=== PATIENT | female | born 1950 | race Caucasian/White ===

== ENCOUNTER → 2016-07-12 | Outpatient (CLI) | payer MEDICARE ==
--- NOTE | 2016-07-12 10:15 | US ---
EXAMINATION TYPE: US thyroid st tissue head/neck DATE OF EXAM: 07/12/2016 9:43 AM COMPARISON: NONE CLINICAL HISTORY: Dysphagia R13.19. left lower neck feels like something gets stuck or pressure on it GLAND SIZE: Right Lobe: 4.2 x 1.4 x 1.7 cm Overall Parenchyma: heterogenous Left Lobe: 4.6 x 1.4 x 1.4 cm Overall Parenchyma: heterogeneous Isthmus Thickness: 0.2 cm NODULES RIGHT: # of nodules measured on right: 1 1. 1.5 X 1.2 x 1.4 cm echogenic solid nodule at the mid pole with well-defined margins; . This nod ule is wider than tall and shows intranodular vascularity. Prior size: no prior LEFT: # of nodules measured on left: 3 1. 0.3 X 0.3 x 0.5 cm isoechoic mixed nodule at the medial inferior/mid pole with well-defined neil ins; . This nodule is taller than wide and shows no intranodular vascularity. Prior size: no prior 2. 0.3 X 0.2 x 0.6 cm isoechoic mixed nodule at the lower/lateral pole with poorly defined margins; . This nodule is irregular shape and shows no intranodular vascularity. Prior size: no prior 3. 0.8 X 0.5 x 0.5 cm echogenic solid nodule at the lower pole with well-defined margins; . This no dule is wider than tall and shows no intranodular vascularity. Prior size: no prior ISTHMUS: # of nodules measured in the isthmus: 0 TECHNOLOGIST IMPRESSION: Bilateral neck scanned, no abnormal lymphadenopathy noted. Thyroid gland is within normal limits in size and somewhat heterogeneous in appearance. There are sma ll nodules marked in the left thyroid gland. The right thyroid there is round heterogeneous well-defi flex slightly hyperechoic but hypervascular nodule measuring 1.5 cm in size. IMPRESSION: There is 1.5 cm round slightly hyperechoic nodule right thyroid lobe noted. KATHY 2015 guidelines clas sify as low suspicion due to hyperechoic appearance and recommend FNA at greater than 1.5 cm so the l esion is borderline to follow or sample at this time.
== END | disposition home or self-care (01) ==
LOC: RADUSWWP 09:06
PROVIDERS: ATTEND Family Medicine
DX: E04.1 Nontoxic single thyroid nodule (principal)
CPT/HCPCS: 76536

== ENCOUNTER → 2017-05-27 | Outpatient (CLI) | payer MEDICARE ==
--- NOTE | 2017-05-27 11:24 | US ---
EXAMINATION TYPE: US thyroid st tissue head/neck DATE OF EXAM: 05/27/2017 COMPARISON: US CLINICAL HISTORY: E04.2Nontoxic multinodular goiter. F/U previous GLAND SIZE: Right Lobe: 3.8 x 1.4 x 1.8 cm Overall Parenchyma: heterogenous Left Lobe: 5.0 x 1.5 x 1.4 cm Overall Parenchyma: heterogeneous Isthmus Thickness: 0.3 cm NODULES RIGHT: # of nodules measured on right: 1 1. 1.5 X 1.2 x 1.5 cm echogenic solid nodule at the mid/lower pole with well-defined margins; This nodule is wider than tall and shows intranodular vascularity. Prior size: 1.5 x 1.2 x 1.4 cm LEFT: # of nodules measured on left: 3 1. 0.5 X 0.4 x 0.5 cm isoechoic mixed nodule at the medial pole with well-defined margins; This no dule is wider than tall and shows no intranodular vascularity. Prior size: 0.3 x 0.3 x 0.5 cm 2. 0.6 X 0.3 x 0.7 cm isoechoic mixed nodule at the mid pole with poorly defined margins; This nodu le is wider than tall and shows no intranodular vascularity. Prior size: 0.3 x 0.2 x 0.6 cm 3. 0.8 X 0.5 x 0.7 cm isoechoic solid nodule at the lower pole with well-defined margins; This nodu le is wider than tall and shows intranodular vascularity. Prior size: 0.8 x 0.5 x 0.5 cm ISTHMUS: # of nodules measured in the isthmus: 0 Bilateral neck scanned, no evidence of lymphadenopathy. Stable nodules bilaterally IMPRESSION: Stable thyroid nodularity.
== END | disposition home or self-care (01) ==
LOC: RADUSWWP 10:34
PROVIDERS: ATTEND Internal Medicine Endocrinology, Diabetes & Metabolism
DX: E04.1 Nontoxic single thyroid nodule (principal)
CPT/HCPCS: 76536

== ENCOUNTER → 2017-11-19 | Outpatient (CLI) | payer MEDICARE ==
--- NOTE | 2017-11-19 09:57 | US ---
EXAMINATION TYPE: US thyroid st tissue head/neck DATE OF EXAM: 11/19/2017 COMPARISON: Thyroid ultrasound May 27, 2017 CLINICAL HISTORY: E04.2 Nontoxic multinodular goiter. GLAND SIZE: Right Lobe: 4.1 x 1.8 x 1.5 cm Overall Parenchyma: heterogenous Left Lobe: 4.8 x 2.0 x 1.3 cm Overall Parenchyma: heterogeneous Isthmus Thickness: 0.2 cm NODULES RIGHT: # of nodules measured on right: 1. 1.4 X 1.5 x 1.4 cm isoechoic solid nodule at the mid pole with well-defined margins; . This nod ule is wider than tall and shows intranodular vascularity. Prior size: 1.5 x 1.2 x 1.5 cm 2. 0.8 X 0.4 x 0.8 cm hypoechoic solid nodule at the lower pole with well-defined margins; . This n odule is wider than tall and shows intranodular vascularity. Prior size: not previously measured LEFT: # of nodules measured on left: 1. 0.5 X 0.6 x 0.4 cm hypoechoic mixed nodule at the medial pole with well-defined margins; . This nodule is taller than wide and shows no intranodular vascularity. Prior size: 0.5 x 0.4 x 0.5 cm 2. 0.4 X 0.4 x 0.4 cm hypoechoic mixed nodule at the mid pole with poorly defined margins; . This n odule is wider than tall and shows no intranodular vascularity. Prior size: x x cm 3. 0.7 X 0.6 x 0.9 cm isoechoic solid nodule at the lower pole with well-defined margins; . This no dule is wider than tall and shows intranodular vascularity. Prior size: 0.8 x 0.5 x 0.7 cm ISTHMUS: # of nodules measured in the isthmus: 0 Bilateral neck scanned, no evidence of lymphadenopathy. There is redemonstration of slightly heterogeneous normal-sized thyroid with stable nodules identifie d bilaterally. No new nodules are evident. IMPRESSION: Overall stable findings.
== END | disposition home or self-care (01) ==
LOC: RADUSWWP 09:17
PROVIDERS: ATTEND Internal Medicine Endocrinology, Diabetes & Metabolism
DX: E04.2 Nontoxic multinodular goiter (principal)
CPT/HCPCS: 76536

== ENCOUNTER → 2018-04-17 | Outpatient (CLI) | payer MEDICARE ==
--- NOTE | 2018-04-17 14:03 | BD ---
EXAMINATION TYPE: Axial Bone Density DATE OF EXAM: 04/17/2018 COMPARISON: DEXA bone scan report April 03, 2007 CLINICAL HISTORY: Post menopausal female. Height: 64 Weight: 179.0 FRAX RISK QUESTIONS: Alcohol (3 or more units per day): no Family History (Parent hip fracture): no Glucocorticoids (More than 3mos): no (Ex: prednisone, prednisolone, methylprednisolone, dexamethasone, and hydrocortisone). History of Fracture in Adulthood: no Secondary Osteoporosis: 1. Type 1 Diabetes: no 2. Hyperthyroidism: no 3. Menopause before 45: no 4. Malnutrition: no 5. Chronic liver disease: no Rheumatoid Arthritis: yes Current Tobacco Use: no RISK FACTORS HISTORY OF: Surgery to Spine/Hip(right/left)/Wrist (right/left): lumbar spine surgery When: 2018 Family History of Osteoporosis: no Active: yes Diet low in dairy products/other sources of calcium: no Postmenopausal woman: after age 46 Lost more than 2 inches in height since high school: no Frequent falls: no MEDICATIONS: xeljanz, lipitor, lisinopril with hct Additional History: EXAM MEASUREMENTS: Bone mineral densitometry was performed using the [employer] [facility]. Bone mineral density about the R hip (g/cm2): 0.902 Bone mineral density about the L hip (g/cm2): 0.824 T Score values are as follows: -----R Neck: -1.0 -----L Neck: -1.5 -----R Total: 0.1 -----L Total: 0.3 Bone mineral density has: increased 3.8 % since study of: 04.03.2007 Bone mineral density about the L Wrist (g/cm2): 0.605 T Score values are as follows: -----Dist. R+U: -1.3 -----Prox. R+U: -0.4 -----Radius total: -1.1 Bone mineral density has: % since study of: 04.03.2007 IMPRESSION: Osteopenia (T Score between -2.5 and -1) femoral neck level in both hips. There is slightly increased risk of fracture and the patient may be considered for treatment. Re-Screen 2-5 years. NOTE: T-SCORE=SD OF THE YOUNG ADULT MEAN.
== END | disposition home or self-care (01) ==
LOC: RADBDWWP 12:08
PROVIDERS: ATTEND Internal Medicine Rheumatology
DX: M85.80 Other specified disorders of bone density and structure, unspecified site (principal); M05.79 Rheumatoid arthritis with rheumatoid factor of multiple sites without organ or systems involvement; Z79.899 Other long term (current) drug therapy
CPT/HCPCS: 77080

== ENCOUNTER → 2018-04-17 | Outpatient (CLI) | payer MEDICARE ==
--- NOTE | 2018-04-17 12:47 | US ---
EXAMINATION TYPE: US thyroid st tissue head/neck DATE OF EXAM: 04/17/2018 COMPARISON: US CLINICAL HISTORY: E04.2 Nontoxic multinodular goiter. F/U GLAND SIZE: Right Lobe: 4.1 x 1.5 x 1.3 cm Overall Parenchyma: homogenous Left Lobe: 4.5 x 1.7 x 1.3 cm Overall Parenchyma: homogeneous Isthmus Thickness: 0.3 cm NODULES RIGHT: # of nodules measured on right: 3 1. 1.9 X 1.4 x 1.4 cm isoechoic solid nodule at the lower pole with well-defined margins; This nod ule is wider than tall and shows intranodular vascularity. Prior size: 1.4 x 1.5 x 1.4 cm 2. 0.7 X 0.4 x 0.6 cm isoechoic solid nodule at the lower pole with well-defined margins; This nodu le is wider than tall and shows intranodular vascularity. Prior size: 0.8 x 0.4 x 0.8 cm 3. 0.9 X 0.5 x 0.8 cm hypoechoic solid nodule at the lower pole with well-defined margins; This nod ule is wider than tall and shows no intranodular vascularity. Prior size: Not visualized on prior LEFT: # of nodules measured on left: 2 1. 0.7 X 0.6 x 0.5 cm hypoechoic solid nodule at the mid pole with well-defined margins; This nodu le is wider than tall and shows intranodular vascularity. Prior size: 0.5 x 0.6 x 0.4 cm 2. 0.5 X 0.4 x 0.5 cm hypoechoic solid nodule at the mid pole with well-defined margins; This nodul e is wider than tall and shows intranodular vascularity. Prior size: 0.4 x 0.4 x 0.4 cm 3rd nodule visualized on prior not visualized on today's exam Bilateral neck scanned, no evidence of lymphadenopathy. New nodule right lower lobe measures subcenti meter. Homogeneous thyroid with multiple small nodules is redemonstrated. Dominant right-sided thyroid nodul e is stable. No new greater than 1 cm nodules are seen. IMPRESSION: As above.
== END | disposition home or self-care (01) ==
LOC: RADUSWWP 12:05
PROVIDERS: ATTEND Internal Medicine Endocrinology, Diabetes & Metabolism
DX: E04.2 Nontoxic multinodular goiter (principal)
CPT/HCPCS: 76536

== ENCOUNTER → 2018-08-06 | Outpatient (CLI) | payer MEDICARE | END | disposition home or self-care (01) | LOC: LABWHC1 13:38 | PROVIDERS: ATTEND Internal Medicine Rheumatology | DX: M05.79 Rheumatoid arthritis with rheumatoid factor of multiple sites without organ or systems involvement (principal); Z79.899 Other long term (current) drug therapy | CPT/HCPCS: 36415 ==

== ENCOUNTER → 2018-08-06 | Outpatient (CLI) | payer MEDICARE ==
--- NOTE | 2018-08-06 15:16 | US ---
EXAMINATION TYPE: US thyroid st tissue head/neck DATE OF EXAM: 08/06/2018 COMPARISON: 04/17/2018 CLINICAL HISTORY: E04.2 Nontoxic multinodular goiter. follow up exam, not on meds GLAND SIZE: Right Lobe: 4.7 x 4.3 x 2.2 cm Overall Parenchyma: heterogenous Left Lobe: 4.3 x 1.0 x 1.7 cm Overall Parenchyma: heterogeneous Isthmus Thickness: 0.4 cm NODULES RIGHT: # of nodules measured on right: 3 1. 1.4 X 1.5 x 1.4 cm solid nodule at the mid pole with well-defined margins. This nodule is wider than tall and shows no intranodular vascularity. Prior size: 1.9 x 1.4 x 1.4 cm 2. 0.8 X 0.4 x 0.7 cm cystic nodule at the lower pole with well-defined margins. This nodule is tall er than wide and shows no intranodular vascularity. Prior size: 0.9 x 0.5 x 0.8 cm 3. 0.7 X 0.4 x 0.8 cm solid nodule at the mid pole with well-defined margins. This nodule is wider t garza tall and shows no intranodular vascularity. Prior size: 0.7 x 0.4 x 0.6 cm LEFT: # of nodules measured on left: 2 1. 0.6 X 0.5 x 0.5 cm cystic nodule at the mid/inf pole with well-defined margins. This nodule is taller than wide and shows no intranodular vascularity. Prior size: 0.7 x 0.6 x 0.5 cm 2. 0.9 X 0.6 x 0.7 cm hypoechoic solid nodule at the lower pole with well-defined margins. This nod ule is wider than tall and shows intranodular vascularity. Prior size: 0.5 x 0.4 x 0.5 cm ISTHMUS: # of nodules measured in the isthmus: 0 Bilateral neck scanned, no evidence of lymphadenopathy. IMPRESSION: Multinodular thyroid changes are stable with exception of a 9 mm nodule seen within the left lobe whi ch previously measured 5 mm. Correlate for thyroiditis.
== END | disposition home or self-care (01) ==
LOC: RADUSWWP 13:52
PROVIDERS: ATTEND Internal Medicine Endocrinology, Diabetes & Metabolism
DX: E04.2 Nontoxic multinodular goiter (principal)
CPT/HCPCS: 76536

== ENCOUNTER 2018-08-29 09:09 | Day surgery (SDC) | payer MEDICARE ==
[2018-08-29 10:35] VITALS: RESP 16; TEMP 98
[2018-08-29 11:11] VITALS: BP 132/76; PULSE 72
--- NOTE | 2018-08-29 11:49 | US ---
EXAMINATION TYPE: US FNA thyroid first lesion DATE OF EXAM: 08/29/2018 COMPARISON: Ultrasound 08/06/2018 HISTORY: Thyroid nodule, E04.1 Maximal barrier technique was utilized. Ultrasound using sterile technique. The skin overlying the no dule was localized with ultrasound and the overlying skin prepped and draped. Lidocaine used for loca l anesthesia. 5 passes with a 25-gauge needle were made into the lower pole left lobe thyroid nodule under ultrasound guidance. Aspirate specimen submitted to cytology. Following the procedure hemostasi s achieved. No immediate complication IMPRESSION: Status post ultrasound-guided fine-needle aspiration of thyroid nodule, pathology pending .
== END 2018-08-29 11:45 | disposition home or self-care (01) ==
LOC: RADPROMAIN 09:09
PROVIDERS: ATTEND Radiology Diagnostic Radiology
DX: E04.1 Nontoxic single thyroid nodule (principal)
CPT/HCPCS: 10005; 88173; 88305

== ENCOUNTER → 2019-03-13 | Outpatient (CLI) | payer MEDICARE ==
--- NOTE | 2019-03-13 13:04 | US ---
EXAMINATION TYPE: US thyroid st tissue head/neck DATE OF EXAM: 03/13/2019 COMPARISON: NONE CLINICAL HISTORY: E04.2 Nontoxic mulitnodular goiter. Follow up thyroid nodules GLAND SIZE: Right Lobe: 4.7 x 2.0 x 1.7 cm Overall Parenchyma: heterogenous Left Lobe: 3.7 x 1.2 x 1.5 cm Overall Parenchyma: heterogeneous Isthmus Thickness: 0.3 cm NODULES RIGHT: # of nodules measured on right: 3 1. 1.7 X 1.3 x 1.5 cm solid nodule at the mid pole with well-defined margins; . This nodule is wid er than tall and shows intranodular vascularity. Prior size: 1.4 x 1.5 x 1.4 cm 2. 1.1 X 0.5 x 0.7 cm cystic nodule at the lower pole with well-defined margins; . This nodule is w ider than tall and shows no intranodular vascularity. Prior size: 0.8 x 0.4 x 0.7 cm 3. 0.7 X 0.4 x 0.6 cm solid nodule at the mid pole with poorly defined margins; . This nodule is wi danica than tall and shows intranodular vascularity. Prior size: 0.7 x 0.4 x 0.8 cm LEFT: # of nodules measured on left: 2 1. 0.5 X 0.5 x 0.4 cm hypoechoic nodule at the mid/lower pole with well-defined margins; . This no dule is taller than wide and shows intranodular vascularity. Prior size: 0.6 x 0.5 x 0.5 cm 2. 0.9 X 0.6 x 0.8 cm solid nodule at the lower pole with well-defined margins; . This nodule is wi danica than tall and shows intranodular vascularity. Prior size: 0.9 x 0.6 x 0.7 cm ISTHMUS: # of nodules measured in the isthmus: 0 Bilateral neck scanned, no evidence of lymphadenopathy. IMPRESSION: Minimal interval growth of 2 of the right thyroid nodules although these appear to have o nly very minimal growth in comparison to multiple prior exams. Fine-needle aspiration could be consid ered for the most dominant right thyroid nodule if not previously performed or continued surveillance . Similar size of the subcentimeter left thyroid nodules.
== END ==
LOC: RADUSWWP 12:06
PROVIDERS: ATTEND Internal Medicine Endocrinology, Diabetes & Metabolism
DX: E04.2 Nontoxic multinodular goiter (principal)
CPT/HCPCS: 76536

== ENCOUNTER → 2020-05-23 | Outpatient (CLI) | payer MEDICARE ==
--- NOTE | 2020-05-23 17:41 | BD ---
EXAMINATION TYPE: Axial Bone Density DATE OF EXAM: 05/23/2020 COMPARISON: 04/17/2018 CLINICAL HISTORY: Postmenopausal screening Height: 5 FT 4 IN Weight: 177 FRAX RISK QUESTIONS: Alcohol (3 or more units per day): NO Family History (Parent hip fracture): NO Glucocorticoids (More than 3mos): YES (Ex: prednisone, prednisolone, methylprednisolone, dexamethasone, and hydrocortisone). History of Fracture in Adulthood: NO Secondary Osteoporosis: 1. Type 1 Diabetes: NO 2. Hyperthyroidism: NODULES 3. Menopause before 45: NO 4. Malnutrition: NO 5. Chronic liver disease: NO Rheumatoid Arthritis: YES Current Tobacco Use: NO RISK FACTORS HISTORY OF: Surgery to Spine/Hip(right/left)/Wrist (right/left): LUMBAR SURG RODS AND SCREWS When: 2018 Family History of Osteoporosis: NO Active: YES Diet low in dairy products/other sources of calcium: NO Postmenopausal woman: AGE 56 Take estrogen and/or progesterone medications: TOOK HRT FOR A VERY SHORT TIME 3-6 MONTHS Lost more than 2 inches in height since high school: NO MEDICATIONS: Additional Medications: XELJANZ, LISINOPRIL, H2O PILL, LIPITOR ,OTC CALCIUM, AND VIT D Additional History: EXAM MEASUREMENTS: Bone mineral density about the R hip (g/cm2): 0.858 Bone mineral density about the L hip (g/cm2): 0.783 T Score values are as follows: -----R Neck: -1.3 -----L Neck: -1.8 -----R Total: -0.5 -----L Total: -0.1 Bone mineral density has: DECREASED -5.9 % since study of: 2017 Bone mineral density about the L Wrist (g/cm2): 0.626 T Score values are as follows: -----Dist. R+U: -0.9 -----Prox. R+U: 0.0 -----Radius total: 0.9 Bone mineral density has: INCREASED 4.7 % since study of: 2018 IMPRESSION: Osteopenia (T Score between -2.5 and -1). There is slightly increased risk of fracture and the patient may be considered for treatment. Re-Screen 2-5 years. NOTE: T-SCORE=SD OF THE YOUNG ADULT MEAN.
== END | disposition home or self-care (01) ==
LOC: RADBDWWP 14:40
PROVIDERS: ATTEND Nurse Practitioner Family
DX: M85.80 Other specified disorders of bone density and structure, unspecified site (principal)
CPT/HCPCS: 77080

== ENCOUNTER → 2020-05-23 | Outpatient (CLI) | payer MEDICARE ==
[2020-05-23 16:31] LABS: T4, Free (Free Thyroxine) 0.82 ng/dL (0.78-2.19)
--- NOTE | 2020-05-23 17:31 | US ---
EXAMINATION TYPE: US thyroid st tissue head/neck DATE OF EXAM: 05/23/2020 COMPARISON: 03/13/2019 CLINICAL HISTORY: 70-year-old female E04.2 nontoxic multinodular goiter. TECHNIQUE: Multiple sonographic images of the thyroid gland are obtained. FINDINGS: GLAND SIZE: Right Lobe: 3.9 x 2.4 x 1.9 cm Overall Parenchyma: heterogenous Left Lobe: 5.1 x 1.9 x 1.3 cm Overall Parenchyma: heterogeneous Isthmus Thickness: 0.3 cm NODULES RIGHT: # of nodules measured on right: 3 1. 1.7 X 1.6 x 1.7 cm solid heterogeneous isoechoic nodule at the mid to lower pole which is wider than tall, with smooth margins, without echogenic foci. Prior size: 1.8 x 1.3 x 1.5 cm 2. 1.4 X 0.8 x 0.7 cm benign cyst which is wider than tall, with smooth margins, without echogenic foci. Prior size: 1.1 x 0.5 x 0.7 cm 3. 0.9 X 0.5 x 0.7 cm small solid hypoechoic nodule at the anterior lower pole is wider than tall, with smooth margins, with echogenic foci. Prior size: 0.7 x 0.4 x 0.6 cm LEFT: # of nodules measured on left: 3 1. 0.6 X 0.6 x 0.6 cm benign cyst at the posterior midpole Prior size: 0.5 x 0.5 x 0.4 cm 2. 0.9 X 0.8 x 0.8 cm solid hypoechoic nodule which is wider than tall, with smooth margins, withou t echogenic foci. Prior size: 0.9 x 0.6 x 0.8 cm 3. 0.5 X 0.4 x 0.5 cm mixed cystic and solid nodule at the mid to lower pole, which is wider than t all, with smooth margins, without echogenic foci. Prior size: not measured previously ISTHMUS: # of nodules measured in the isthmus: 0 Bilateral neck scanned, no evidence of lymphadenopathy. IMPRESSION: 1. Correlate for multinodular goiter. Dominant solid nodule on the right is stable at 1.7 x 1.7 cm (v ersus 1.8 x 1.5 cm, previously). 2. A small solid nodule at the right lower pole is slightly larger at 9 x 7 mm (versus 7 x 6 mm, prev iously). 2017 ACR TI-RADS LEVEL: *Highest TI-RADS level nodule reported
== END | disposition home or self-care (01) ==
LOC: RADUSWWP 14:38
PROVIDERS: ATTEND Internal Medicine Endocrinology, Diabetes & Metabolism
DX: E04.2 Nontoxic multinodular goiter (principal)
CPT/HCPCS: 36415; 76536; 84439; 84443

== ENCOUNTER → 2020-05-26 | Outpatient (CLI) | payer MEDICARE ==
--- NOTE | 2020-05-27 11:23 | MM ---
Reason for exam: screening (asymptomatic). Last mammogram was performed 4 years and 5 months ago. History: Patient is postmenopausal. Family history of breast cancer in maternal aunt at age 50. Benign cyst aspiration of the right breast, July 14, 2003. Took progesterone for 4 years. Physical Findings: A clinical breast exam by your physician is recommended on an annual basis and results should be correlated with mammographic findings. MG 3D Screening Mammo W/Cad Bilateral CC and MLO view(s) were taken. Prior study comparison: January 03, 2016, bilateral MG screening mammo w CAD. November 09, 2014, bilateral MG screening mammo w CAD. The breast tissue is heterogeneously dense. This may lower the sensitivity of mammography. Benign appearing bilateral calcifications. No significant changes when compared with prior studies. ASSESSMENT: Benign, BI-RAD 2 RECOMMENDATION: Routine screening mammogram of both breasts in 1 year.
== END | disposition home or self-care (01) ==
LOC: RADMAMWWP 14:41
PROVIDERS: ATTEND Obstetrics & Gynecology
DX: Z12.31 Encounter for screening mammogram for malignant neoplasm of breast (principal)
CPT/HCPCS: 77063; 77067

== ENCOUNTER → 2020-11-14 | Outpatient (CLI) | payer MEDICARE | END | disposition home or self-care (01) | LOC: LABWHC1 15:09 | PROVIDERS: ATTEND Internal Medicine Rheumatology | DX: M05.79 Rheumatoid arthritis with rheumatoid factor of multiple sites without organ or systems involvement (principal); Z79.899 Other long term (current) drug therapy | CPT/HCPCS: 36415; 86480 ==

== ENCOUNTER → 2020-11-14 | Outpatient (CLI) | payer MEDICARE ==
--- NOTE | 2020-11-14 15:55 | US ---
EXAMINATION TYPE: US thyroid st tissue head/neck DATE OF EXAM: 11/14/2020 COMPARISON: US 05/23/2020 CLINICAL HISTORY: E04.2 MULTINODULAR GOITER. GLAND SIZE: Right Lobe: 4.3 x 1.8 x 1.8 cm Overall Parenchyma: heterogenous Left Lobe: 5.2 x 1.6 x 1.2 cm Overall Parenchyma: heterogeneous Isthmus Thickness: 0.4 cm NODULES RIGHT: # of nodules measured on right: 2 1. 1.7 X 1.5 x 1.6 cm, mid , solid or almost completely solid, isoechoic nodule, which is wider maria del carmen n tall, with smooth margins, without echogenic foci. Prior size: 1.7 x 1.6 x 1.7 cm 2. 1.4 X 0.9 x 1.0 cm, lower , cystic or almost completely cystic, anechoic nodule, which is wider than tall, with smooth margins, without echogenic foci. Prior size: 1.4 x 0.8 x 0.7 cm LEFT: # of nodules measured on left: 1 1. 0.6 X 0.5 x 0.4 cm, lower , cystic or almost completely cystic, anechoic nodule, which is wider than tall, with ill-defined margins, without echogenic foci. Prior size: 0.6 x 0.6 x 0.6 cm ISTHMUS: # of nodules measured in the isthmus: 0 Bilateral neck scanned, no evidence of lymphadenopathy. IMPRESSION: Bilateral thyroid nodules appears similar to the prior exam. 2017 ACR TI-RADS LEVEL: TR-RADS 4 - Moderately Suspicious: Follow if > 1 cm, FNA if > 1.5 cm *Highest TI-RADS level nodule reported
== END | disposition home or self-care (01) ==
LOC: RADUSWWP 14:39
PROVIDERS: ATTEND Internal Medicine Endocrinology, Diabetes & Metabolism
DX: E04.2 Nontoxic multinodular goiter (principal)
CPT/HCPCS: 76536

== ENCOUNTER → 2021-05-02 | Outpatient (CLI) | payer MEDICARE ==
--- NOTE | 2021-05-02 15:19 | US ---
EXAMINATION TYPE: US thyroid st tissue head/neck DATE OF EXAM: 05/02/2021 COMPARISON: 11/14/2020 CLINICAL HISTORY: 70-year-old female E04.2 Nontoxic multinodular goiter. Follow up thyroid nodules. Not on thyroid meds. TECHNIQUE: Multiple sonographic images of the thyroid gland are obtained. FINDINGS: GLAND SIZE: Right Lobe: 3.7 x 1.8 x 1.7 cm Overall Parenchyma: homogenous Left Lobe: 4.6 x 1.3 x 1.2 cm Overall Parenchyma: homogeneous Isthmus Thickness: 0.3 cm NODULES RIGHT: # of nodules measured on right: 2 1. 1.9 x 1.5 x 1.5 cm, mid, solid or almost completely solid, isoechoic TR 3 nodule, which is wide as tall, with smooth margins, without echogenic foci. Prior size: 1.7 x 1.5 x 1.6 cm 2. 1.3 X 0.9 x 0.9 cm, posterior mid pole benign cyst. Prior size: 1.4 x 0.9 x 1.0 cm LEFT: # of nodules measured on left: 2 1. 0.5 X 0.6 x 0.4 cm, posterior mid pole benign cyst. Prior size: 0.6 x 0.5 x 0.4 cm 2. 0.8 X 0.6 x 0.5 cm, lower , solid or almost completely solid, isoechoic TR 3 nodule, which is w ider than tall, with smooth margins, without echogenic foci. Prior size: 0.7 x 0.5 x 0.6 cm ISTHMUS: # of nodules measured in the isthmus: 0 Bilateral neck scanned, no evidence of lymphadenopathy. IMPRESSION: 1. A TR3 solid nodule seen on either side. On the right, this may be minimally larger at 1.9 x 1.5 cm (versus 1.7 x 1.6 cm, previously). 2. The 8 mm TR3 nodule on the left not significantly changed. 3. Continued follow-up can be performed.
[2021-05-02 17:14] LABS: T4, Free (Free Thyroxine) 1.16 ng/dL (0.78-2.19)
== END | disposition home or self-care (01) ==
LOC: RADUSWWP 14:36
PROVIDERS: ATTEND Internal Medicine Endocrinology, Diabetes & Metabolism
DX: E04.2 Nontoxic multinodular goiter (principal)
CPT/HCPCS: 76536; 84439; 84443

== ENCOUNTER → 2021-06-09 | Outpatient (CLI) | payer MEDICARE ==
--- NOTE | 2021-06-13 09:07 | MM ---
Reason for exam: screening (asymptomatic). Last mammogram was performed 1 year ago. History: Patient is postmenopausal. Family history of breast cancer in maternal aunt at age 50. Benign cyst aspiration of the right breast, July 14, 2003. Took progesterone for 4 years. Physical Findings: A clinical breast exam by your physician is recommended on an annual basis and results should be correlated with mammographic findings. MG 3D Screening Mammo W/Cad Bilateral CC and MLO view(s) were taken. Prior study comparison: May 26, 2020, bilateral MG 3d screening mammo w/cad. January 03, 2016, bilateral MG screening mammo w CAD. The breast tissue is heterogeneously dense. This may lower the sensitivity of mammography. No significant changes when compared with prior studies. ASSESSMENT: Negative, BI-RAD 1 RECOMMENDATION: Routine screening mammogram of both breasts in 1 year.
== END | disposition home or self-care (01) ==
LOC: RADMAMWWP 14:57
PROVIDERS: ATTEND Family Medicine
DX: Z12.31 Encounter for screening mammogram for malignant neoplasm of breast (principal); Z78.0 Asymptomatic menopausal state; Z80.3 Family history of malignant neoplasm of breast
CPT/HCPCS: 77063; 77067

== ENCOUNTER → 2021-09-05 | Outpatient (CLI) | payer MEDICARE | END | disposition home or self-care (01) | LOC: LABWHC1 11:40 | PROVIDERS: ATTEND Internal Medicine Rheumatology | DX: M05.79 Rheumatoid arthritis with rheumatoid factor of multiple sites without organ or systems involvement (principal); Z79.899 Other long term (current) drug therapy | CPT/HCPCS: 36415; 86480 ==

== ENCOUNTER → 2021-09-11 | Outpatient (CLI) | payer MEDICARE ==
--- NOTE | 2021-09-11 18:55 | XR ---
EXAMINATION TYPE: XR cervical spine w flex/ext DATE OF EXAM: 09/11/2021 COMPARISON: None available INDICATION: Preoperative, for intubation. TECHNIQUE: 5 views of the cervical spine including flexion and extension views FINDINGS: Anterolisthesis of C3 over C4 with retrolisthesis of C4 over C5, likely degenerative, without signifi cant change in the flexion or extension views. Unremarkable prevertebral soft tissue. Degenerative changes of the cervical spine with multilevel opposing endplate osteophytosis, degenerat ed discs and uncovertebral osteoarthropathy, most evident at C4-5 and C5-6 levels. Multilevel facet o steoarthropathy is also noted. Unremarkable atlantoaxial articulations. IMPRESSION: Degenerative changes of the cervical spine as described above.
== END | disposition home or self-care (01) ==
LOC: RADXRMAIN 12:42
PROVIDERS: ATTEND Internal Medicine Rheumatology
DX: Z01.818 Encounter for other preprocedural examination (principal); M47.812 Spondylosis without myelopathy or radiculopathy, cervical region
CPT/HCPCS: 72052

== ENCOUNTER → 2022-05-02 | Outpatient (CLI) | payer MEDICARE ==
--- NOTE | 2022-05-02 17:09 | US ---
EXAMINATION TYPE: US thyroid st tissue head/neck DATE OF EXAM: 05/02/2022 COMPARISON: 05/02/2021 CLINICAL HISTORY: E04.2 NONTOXIC MULTINODULAR GOITER. GLAND SIZE: Right Lobe: 3.8 x 1.8 x 1.8 cm Overall Parenchyma: Left Lobe: 4.4 x 1.5 x 1.1cm Overall Parenchyma: Isthmus Thickness: 0.30cm NODULES RIGHT: # of nodules measured on right: 2 1. 2.0 x 1.8 x 1.6 cm, mid Prior size: 1.9 x 1.5 x 1.5 cm TIRADS Score: 2 TIRADS Category 2: Not Suspicious Composition: Mixed cystic and solid (1 point). Echogenicity: Hyperechoic or isoechoic (1 point). Shape: Wider than tall (0 points). Margin: Smooth (0 points). Echogenic foci: None or large comet-tail artifacts (0 points) Recommendation: No FNA 2. 1.0 X 0.77 x 0.72 cm, mid posterior, Prior size: New from prior TIRADS Score: 3 TIRADS Category 3: Mildly Suspicious Composition: Solid or almost completely solid (2 points). Echogenicity: Hyperechoic or isoechoic (1 point). Shape: Wider than tall (0 points). Margin: Smooth (0 points). Echogenic foci: None or large comet-tail artifacts (0 points) Recommendation: If >2.5cm: FNA; If >1.5cm: Follow up at 1,3,5 years *Prior cyst seen on right thyroid not visualized today. LEFT: # of nodules measured on left: 2 1. 0.52 X 0.45 x 0.65 cm, mid Prior size: 0.51 x 0.44 x 0.61 cm TIRADS Score: 0 TIRADS Category 1: Benign Composition: Cystic or almost completely cystic (0 points). Recommendation: No FNA 2. 0.71 X 0.62 x 0.63 cm, lower , Prior size: 0.77 x 0.54 x 0.64 cm TIRADS Score: 3 TIRADS Category 3: Mildly Suspicious Composition: Solid or almost completely solid (2 points). Echogenicity: Hyperechoic or isoechoic (1 point). Shape: Wider than tall (0 points). Margin: Smooth (0 points). Echogenic foci: None or large comet-tail artifacts (0 points) Recommendation: If >2.5cm: FNA; If >1.5cm: Follow up at 1,3,5 years ISTHMUS: # of nodules measured in the isthmus: 0 Bilateral neck scanned, no evidence of lymphadenopathy. IMPRESSION: Bilateral thyroid nodules as described above with recommendations above.
== END | disposition home or self-care (01) ==
LOC: RADUSWWP 13:52
PROVIDERS: ATTEND Internal Medicine Endocrinology, Diabetes & Metabolism
DX: E04.2 Nontoxic multinodular goiter (principal)
CPT/HCPCS: 76536

== ENCOUNTER → 2023-05-07 | Outpatient (CLI) | payer MEDICARE ==
--- NOTE | 2023-05-07 15:18 | US ---
EXAMINATION TYPE: US thyroid st tissue head/neck DATE OF EXAM: 05/07/2023 COMPARISON: NONE CLINICAL INDICATION: Female, 72 years old with history of E04.2 goiter E07.9 DISORDER OF THYROID; GLAND SIZE: Right Lobe: 4.2 x 1.8 x 2.2 cm Overall Parenchyma: homogeneous Left Lobe: 5.2 x 1.5 x 1.2 cm Overall Parenchyma: homogeneous Isthmus Thickness: 0.3 cm NODULES RIGHT: # of nodules measured on right: 1. 2.0 X 1.6 x 2.0 cm, lower mid, solid or almost completely solid, isoechoic nodule, which is wide r than tall, with smooth margins, without echogenic foci. TR 3. Prior size: 2.0 x 1.8 x 1.6 cm 2. 1.0 X 0.7 x 0.9 cm, lower mid, solid or almost completely solid, isoechoic nodule, which is tall er than wide, with smooth margins, without echogenic foci. Prior size: 1.0 x 0.7 x 0.8 cm Third one not seen on this exam LEFT: # of nodules measured on left: 1 1. 0.9 X 0.4 x 0.9 cm, mid mid, solid or almost completely solid, very hypoechoic nodule, which is wider than tall, with smooth margins, without echogenic foci. Prior size: 0.5 x 0.5 x 0.7 cm 2.Not seen on this exam ISTHMUS: # of nodules measured in the isthmus: 0.3 Bilateral neck scanned, no evidence of lymphadenopathy. IMPRESSION: 1. Mildly suspicious nodule right lobe thyroid follow-up exam in one year is recommended. 2017 ACR TI-RADS LEVEL: TR-RADS 3 - Mildly Suspicious: Follow if > 1.5 cm, FNA if > 2.5 cm *Highest TI-RADS level nodule reported
== END | disposition home or self-care (01) ==
LOC: RADUSWWP 13:51
PROVIDERS: ATTEND Internal Medicine Endocrinology, Diabetes & Metabolism
DX: E04.2 Nontoxic multinodular goiter (principal); E07.9 Disorder of thyroid, unspecified
CPT/HCPCS: 76536

== ENCOUNTER → 2023-06-17 | Outpatient (CLI) | payer MEDICARE ==
--- NOTE | 2023-06-18 08:43 | MM ---
Reason for Exam: Screening (asymptomatic). Last screening mammogram was performed 12 month(s) ago. Patient History: Menarche at age 14. First Full-Term at age 22. Left ovary removed at age 71. Right ovary removed at age 71. Postmenopausal. Patient used Progesterone for 4 years. 07/14/2003, Benign Cyst Aspiration on the right side. Maternal aunt had breast cancer, age 50. Risk Values: Corinne 5 year model risk: 1.6%. NCI Lifetime model risk: 4.1%. Prior Study Comparison: 05/26/2020 Bilateral Screening Mammogram, [facility]. 06/09/2021 Bilateral Screening Mammogram, [facility]. 06/11/2022 Bilateral MG 3D screening mammo w/cad, [facility]. Tissue Density: The breast tissue is heterogeneously dense. This may lower the sensitivity of mammography. Findings: Analyzed By CAD. There is no suspicious group of microcalcifications or new suspicious mass. Overall Assessment: Negative, BI-RAD 1 Management: Screening Mammogram of both breasts in [address] [facility] will attempt to contact patient to return for supplemental views and ultrasound if indicated. Patient should continue monthly self-breast exams. A clinical breast exam by your physician is recommended on an annual basis. This exam should not preclude additional follow-up of suspicious palpable abnormalities. Note on Corinne scores and lifetime risk: 1. A Corinne score greater than 3% is considered moderate risk. If this is the case, consider specialist referral to assess eligibility for a risk reducing agent. 2. If overall lifetime risk for the development of breast cancer is 20% or higher, the patient may qualify for future screening with alternating mammogram and breast MRI. Electronically signed and approved by: Emerson Garcia DO
== END | disposition home or self-care (01) ==
LOC: RADMAMWWP 15:15
PROVIDERS: ATTEND Family Medicine
DX: Z12.31 Encounter for screening mammogram for malignant neoplasm of breast (principal); Z78.0 Asymptomatic menopausal state; Z80.3 Family history of malignant neoplasm of breast
CPT/HCPCS: 77063; 77067

== ENCOUNTER → 2023-07-31 | Outpatient (CLI) | payer MEDICARE | END | disposition home or self-care (01) | LOC: LABWHC1 14:50 | PROVIDERS: ATTEND Internal Medicine Rheumatology | DX: M05.9 Rheumatoid arthritis with rheumatoid factor, unspecified (principal); Z79.622 Long term (current) use of Janus kinase inhibitor | CPT/HCPCS: 36415; 86480 ==

== ENCOUNTER 2023-10-08 09:40 | Day surgery (SDC) | payer MEDICARE ==
[~2023-10-08 09:40] MED LIST: LIDOCAINE 1% (10MG/ML) FOR IV START INTRADERMA PRN
[2023-10-08] MEDS: LACTATED RINGERS 1,000 ML IV SCH (10:08)
[2023-10-08] MEDS: IV FLUID CONTINUATION 1,000 ML IV ONE (10:11)
[2023-10-08 10:26] VITALS: TEMP 97.8
[2023-10-08] MEDS ORDERED: LIDOCAINE 1% INJ 10MG/ML (20 ML MDV) ONE (10:53)
[2023-10-08] MEDS ORDERED: PROPOFOL 10 MG/ML 20 ML VIAL IV ONE (10:53)
--- NOTE | 2023-10-08 11:10 | P.PCN ---
Date of Procedure: 10/08/23 Procedure(s) Performed: BRIEF HISTORY: Patient is a 73-year-old pleasant white female scheduled for an elective colonoscopy as a part of evaluation by history of colon polyps. PROCEDURE PERFORMED: Colonoscopy with snare polypectomy. PREOPERATIVE DIAGNOSIS: History of colon polyps. IV sedation per Anesthesia. PROCEDURE: After informed consent was obtained, the patient, was brought into the endoscopy unit. IV sedation was administered by Anesthesia under continuous monitoring. Digital rectal examination was normal. Initially the Olympus CF-160 flexible video colonoscope was then inserted in the rectum, gradually advanced into the cecum without any difficulty. Careful examination was performed as the scope was gradually being withdrawn. Ileocecal valve and the appendiceal orifice were visualized and appeared normal. Prep was excellent. Mucosa of the cecum, ascending colon, transverse colon, descending colon, sigmoid colon, and rectum appeared normal. Rectum there was a 1 cm polyp removed by snare polypectomy. Retroflexion was performed in the rectum and no lesions were seen. The patient tolerated the procedure well. IMPRESSION: 1 cm proximal rectal polyp status post snare polypectomy Rest of the colon appeared normal RECOMMENDATIONS: Findings of this examination were discussed with the patient as well as her family. She was advised to follow-up with the biopsy results. If the biopsy reveals adenoma she can have repeat colonoscopy in 3 years..
[2023-10-08 11:17] VITALS: PULSE 59; RESP 16
[2023-10-08 11:31] VITALS: BP 159/73
== END 2023-10-08 11:57 | disposition home or self-care (01) ==
LOC: ORWHC2ENDO 09:40
PROVIDERS: ATTEND Internal Medicine Gastroenterology
DX: Z12.11 Encounter for screening for malignant neoplasm of colon (principal); D12.8 Benign neoplasm of rectum; E78.5 Hyperlipidemia, unspecified; I10 Essential (primary) hypertension; Z85.828 Personal history of other malignant neoplasm of skin; M06.9 Rheumatoid arthritis, unspecified; Z79.899 Other long term (current) drug therapy; Z86.010 Personal history of colon polyps
CPT/HCPCS: 88305; 45385; J2001; J2704

== ENCOUNTER → 2023-11-15 | Outpatient (CLI) | payer MEDICARE ==
--- NOTE | 2023-11-17 12:19 | US ---
EXAMINATION TYPE: US thyroid st tissue head/neck DATE OF EXAM: 11/15/2023 COMPARISON: 05/07/23 CLINICAL INDICATION: Female, 73 years old with history of E04.2 NONTOXIC MULTINODULAR GOITER; f/u GLAND SIZE: Right Lobe: 4.9x2.3x1.8 cm Overall Parenchyma: homogeneous Left Lobe: 5.1x1.8x1.5 cm Overall Parenchyma: homogeneous Isthmus Thickness: 0.2 cm NODULES RIGHT: # of nodules measured on right: 1 1. 2.1 X 1.8 x 1.8 cm, lower mid, solid or almost completely solid, hypoechoic nodule, which is wid er than tall, with smooth margins, without echogenic foci. Prior size: 2.0 x 1.8 x 1.6 cm 2. not visualized with certainty on todays exam LEFT: # of nodules measured on left: 1 1. 0.6 X 0.7 x 0.3 cm, mid mid, solid or almost completely solid, very hypoechoic nodule, which is taller than wide, with ill-defined margins, without echogenic foci. Prior size: 0.5 x 0.5 x 0.7 cm ISTHMUS: # of nodules measured in the isthmus: 0 Bilateral neck scanned, no evidence of lymphadenopathy. IMPRESSION: 1. Mildly suspicious nodule right lobe thyroid follow-up exam in one year is recommended. 2017 ACR TI -RADS LEVEL: TR-RADS 3 - Mildly Suspicious: Follow if > 1.5 cm, FNA if > 2.5 cm
== END | disposition home or self-care (01) ==
LOC: RADUSWWP 10:12
PROVIDERS: ATTEND Internal Medicine Endocrinology, Diabetes & Metabolism
DX: E04.2 Nontoxic multinodular goiter (principal); R22.0 Localized swelling, mass and lump, head
CPT/HCPCS: 76536

== ENCOUNTER → 2024-04-15 | Outpatient (CLI) | payer MEDICARE ==
--- NOTE | 2024-04-16 09:29 | US ---
EXAMINATION TYPE: US thyroid st tissue head/neck DATE OF EXAM: 04/15/2024 COMPARISON: CLINICAL INDICATION: Female, 73 years old with history of E04.2 NONTOXIC MULTINODULAR GOITER; Follow up nodules. TECHNIQUE: Grayscale and color Doppler imaging of the thyroid gland. FINDINGS: GLAND SIZE: Right Lobe: 4.1 x 2.1 x 2.0 cm Overall Parenchyma: homogeneous Left Lobe: 4.0 x 1.4 x 1.5 cm Overall Parenchyma: homogeneous Isthmus Thickness: 0.3 cm NODULES RIGHT: # of nodules measured on right: 1 1. 2.0 X 1.8 x 1.8 cm, lower mid, solid or almost completely solid, hypoechoic nodule, which is wid er than tall, with smooth margins, without echogenic foci. TR 4. Prior size: 2.1 x 1.8 x 1.8 cm LEFT: # of nodules measured on left: 1 1. 0.6 X 0.8 x 0.4 cm, mid mid, solid or almost completely solid, hypoechoic nodule, which is wider than tall, with smooth margins, without echogenic foci. TR 4. Prior size: 0.6 x 0.7 x 0.3 cm ISTHMUS: # of nodules measured in the isthmus: 0 Bilateral neck scanned, no evidence of lymphadenopathy. IMPRESSION: 1. 2 cm solid hypoechoic nodule right lobe thyroid fine-needle aspiration recommended 2017 ACR TI-RADS LEVEL: TR-RADS 4 - Moderately Suspicious: Follow if > 1 cm, FNA if > 1.5 cm *Highest TI-RADS level nodule reported [email or web address] [email or web address], , 04/16/2024 9:27 AM
== END | disposition home or self-care (01) ==
LOC: RADUSWWP 09:52
PROVIDERS: ATTEND Internal Medicine Endocrinology, Diabetes & Metabolism
DX: E04.2 Nontoxic multinodular goiter (principal); R91.1 Solitary pulmonary nodule
CPT/HCPCS: 76536

== ENCOUNTER → 2024-04-15 | Outpatient (CLI) | payer MEDICARE | END | disposition home or self-care (01) | LOC: LABWHC1 10:13 | PROVIDERS: ATTEND Internal Medicine Endocrinology, Diabetes & Metabolism | DX: E55.9 Vitamin D deficiency, unspecified (principal); E04.2 Nontoxic multinodular goiter; E07.9 Disorder of thyroid, unspecified | CPT/HCPCS: 36415; 82306; 84443 ==

== ENCOUNTER → 2024-07-02 | Outpatient (CLI) | payer MEDICARE ==
--- NOTE | 2024-07-02 10:29 | MM ---
Reason for Exam: Screening (asymptomatic). Last screening mammogram was performed 12 month(s) ago. Patient History: Menarche at age 14. First Full-Term at age 22. Left ovary removed at age 71. Right ovary removed at age 71. Postmenopausal. Patient used Progesterone for 4 years. 07/14/2003, Benign Cyst Aspiration on the right side. Maternal aunt had breast cancer, age 50. Risk Values: Corinne 5 year model risk: 1.6%. NCI Lifetime model risk: 3.9%. Prior Study Comparison: 06/09/2021 Bilateral Screening Mammogram, [facility]. 06/11/2022 Bilateral MG 3D screening mammo w/cad, [facility]. 06/17/2023 Bilateral MG 3D screening mammo w/cad, [facility]. Tissue Density: The breasts are heterogeneously dense, which may obscure small masses. Findings: Analyzed By CAD. Right breast: There is no suspicious group of microcalcifications or new suspicious mass. Left breast: There is no suspicious group of microcalcifications or new suspicious mass. Overall Assessment: Negative, BI-RAD 1 Management: Screening Mammogram of both breasts in [address] [facility] will attempt to contact patient to return for supplemental views and ultrasound if indicated. Patient should continue monthly self-breast exams. A clinical breast exam by your physician is recommended on an annual basis. This exam should not preclude additional follow-up of suspicious palpable abnormalities. Note on Corinne scores and lifetime risk: 1. A Corinne score greater than 3% is considered moderate risk. If this is the case, consider specialist referral to assess eligibility for a risk reducing agent. 2. If overall lifetime risk for the development of breast cancer is 20% or higher, the patient may qualify for future screening with alternating mammogram and breast MRI. [facility], , 07/02/2024 10:26 AM. Electronically signed and approved by: Emerson Garcia DO
== END | disposition home or self-care (01) ==
LOC: RADMAMWWP 08:41
PROVIDERS: ATTEND Family Medicine
DX: Z12.31 Encounter for screening mammogram for malignant neoplasm of breast (principal); R92.333 Mammographic heterogeneous density, bilateral breasts; Z78.0 Asymptomatic menopausal state; Z80.3 Family history of malignant neoplasm of breast
CPT/HCPCS: 77063; 77067